=== PATIENT | male | born 1970 | race Caucasian/White ===

== ENCOUNTER 2017-05-12 18:18 | Emergency (ER) | payer MEDICAID, OTHER ==
[~2017-05-12] VITALS: Ht 175.3 cm; Wt 74.8 kg
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
[2017-05-12 19:15] LABS: BASOPHILS % (AUTO) 0.5 % (0.0-2.0); EOSINOPHILS # (AUTO) 0.3 /CMM (0.0-0.7); EOSINOPHILS % (AUTO) 4.1 % (0.0-6.0); HEMATOCRIT 40 % (39-51); HEMOGLOBIN 13.3 g/dL (13.5-17.5); LYMPHOCYTES # (AUTO) 2.5 /CMM (0.8-4.8); LYMPHOCYTES % (AUTO) 35.3 % (20.0-44.0); MEAN CORPUSCULAR HEMOGLOBIN 30 PG (26.0-33.0); MEAN CORPUSCULAR HGB CONC 34 g/dl (31.0-36.0); MEAN CORPUSCULAR VOLUME 89 fL (80-96); MONOCYTES # (AUTO) 0.8 /CMM (0.1-1.30); MONOCYTES % (AUTO) 11.1 % (2.0-12.0); NEUTROPHILS # (AUTO) 3.6 /CMM (1.8-8.9); PLATELET COUNT (AUTO) 305 /CMM (150-450); RDW COEFFICIENT OF VARIATION 12.3 (11.5-15.0); RED BLOOD CELL COUNT(AUTO) 4.45 MIL/uL (4.5-6.0); WHITE BLOOD COUNT (AUTO) 7.2 K/uL (4.3-11.0)
[2017-05-12 19:29] LABS: CALCIUM, SERUM 8.3 mg/dL (8.5-10.1); POTASSIUM 3.4 mmol/L (3.5-5.1)
[2017-05-12 20:27] VITALS: BP 138/80
== END 2017-05-12 20:28 | disposition home or self-care (01) ==
LOC: ER 18:19
DX: T23.101A Burn of first degree of right hand, unspecified site, initial encounter (principal); T31.0 Burns involving less than 10% of body surface; S61.411A Laceration without foreign body of right hand, initial encounter; Z88.0 Allergy status to penicillin; W86.8XXA Exposure to other electric current, initial encounter; Y93.89 Activity, other specified; Y92.89 Other specified places as the place of occurrence of the external cause; Y99.8 Other external cause status
CPT/HCPCS: 36415; 73130; 80048; 82550; 85025; 93005; 99285; A4606; A6402; Z7610

== ENCOUNTER 2017-05-31 10:53 | Emergency (ER) | payer OTHER ==
[~2017-05-31] VITALS: Ht 167.6 cm; Wt 77.1 kg
[2017-05-31 11:12] VITALS: BP 143/88
--- NOTE | 2017-05-31 11:47 | NUR ---
SHANK RANDER AT BEDSIDE
--- NOTE | 2017-05-31 12:42 | NUR ---
LAB CRITICAL LACTIC ACID 2.2
== END 2017-05-31 13:38 | disposition home or self-care (01) ==
LOC: ER 10:58
DX: S52.502A Unspecified fracture of the lower end of left radius, initial encounter for closed fracture (principal); M25.532 Pain in left wrist; F17.200 Nicotine dependence, unspecified, uncomplicated; Z88.0 Allergy status to penicillin; W13.2XXA Fall from, out of or through roof, initial encounter; Y93.89 Activity, other specified; Y92.89 Other specified places as the place of occurrence of the external cause; Y99.8 Other external cause status
CPT/HCPCS: 73110; 99284; A4606; Z7610